=== PATIENT | female | born 1980 | race Two or more races ===

== ENCOUNTER 2024-06-20 15:09 | Emergency (ER) | payer BC ==
[~2024-06-20] VITALS: Ht 162.6 cm; Wt 77.1 kg
[2024-06-20] MEDS ORDERED: CIPRO500 MG (15:40)
[2024-06-20] MEDS ORDERED: KETOROLAC TROMETHAMINE 60 MG VIAL IM STA (16:09)
[2024-06-20 16:43] LABS: HEMATOCRIT 35.4 % (36.0-45.00); HEMOGLOBIN 12.1 g/dL (12.0-15.00); MEAN CELL VOLUME 89.6 fL (80.00-100.00); MEAN CORPUSCULAR HEMOGLOBIN 30.6 pg (27.00-32.0); MEAN CORPUSCULAR HGB CONC 34.2 g/dl (32.0-36.0); PLATELET COUNT 209 K/uL (150-450); RED BLOOD COUNT 3.95 M/uL (4.00-6.00)
[2024-06-20 17:03] LABS: PH,URINE 6.5 (5.0-8.0); URINE APPEARANCE Clear; URINE BACTERIA 182.6 uL (0.0-1933); URINE BILIRRUBIN Negative (NEGATIVE); URINE BLOOD Large; URINE COLOR Yellow; URINE EPITHELIAL CELLS 21.6 uL (0.0-38.8); URINE GLUCOSE Negative (NEGATIVE); URINE KETONE Negative (NEGATIVE); URINE LEUKOCYTE Negative; URINE NITRATE Negative; URINE PROTEIN Negative (NEGATIVE); URINE RBC 713.3 uL (0.0-20.8); URINE WBC 11.4 uL (0.0-23.2)
[2024-06-20 17:22] LABS: CALCIUM 8.8 mg/dL (8.5-10.1); CREATININE SERUM 0.83 mg/dL (0.55-1.02); GFR 74.68; POTASSIUM 4.35 mEq/L (3.5-5.1)
== END 2024-06-20 19:10 | disposition home or self-care (01) ==
LOC: ER 15:11
PROVIDERS: General Practice
DX: R31.9 Hematuria, unspecified (principal); R10.9 Unspecified abdominal pain; R10.2 Pelvic and perineal pain